=== PATIENT | female | born 1975 | race American Indian/Alaskan Native ===

== ENCOUNTER 2017-01-20 18:01 | Emergency (ER) | payer OTHER ==
[~2017-01-20] VITALS: Ht 162.6 cm; Wt 83.0 kg
[2017-01-20 19:56] LABS: PLATELET COUNT 362 K/uL (152-353)
[2017-01-20 20:06] LABS: POTASSIUM 3.9 mmol/L (3.6-5.2); SODIUM 142 mmol/L (136-145)
[2017-01-21 04:05] VITALS: BP 125/76; TEMP 98.2
== END 2017-01-21 04:25 | disposition short-term general hospital (02) ==
LOC: ED 18:01
PROVIDERS: Emergency Medicine
DX: J90 Pleural effusion, not elsewhere classified (principal); R18.8 Other ascites; N39.0 Urinary tract infection, site not specified; R11.2 Nausea with vomiting, unspecified
CPT/HCPCS: 36415; 80053; 81000; 81025; 83690; 83880; 85027; 87088; 93005; 96361; 96365; 96375; 99285; J0696; J2270; J2405; Q9963

== ENCOUNTER 2017-01-21 04:04 | Outpatient (CLI) | payer OTHER | END 2017-01-21 05:19 | disposition short-term general hospital (02) | LOC: AMB 04:04 | DX: J90 Pleural effusion, not elsewhere classified (principal); R18.8 Other ascites; N39.0 Urinary tract infection, site not specified; R11.2 Nausea with vomiting, unspecified | CPT/HCPCS: A0425; A0429 ==

== ENCOUNTER 2017-03-31 23:19 | Outpatient (CLI) | payer OTHER | END 2017-03-31 23:46 | disposition short-term general hospital (02) | LOC: AMB 23:19 | DX: R06.09 Other forms of dyspnea (principal); M54.89 Other dorsalgia | CPT/HCPCS: A0425; A0427 ==

== ENCOUNTER 2017-06-02 20:55 | Emergency (ER) | payer OTHER ==
[~2017-06-02] VITALS: Ht 162.6 cm; Wt 71.2 kg
[2017-06-02 21:07] VITALS: BP 135/56; TEMP 98
== END 2017-06-02 21:28 | disposition home or self-care (01) ==
LOC: ED 20:55
DX: F41.0 Panic disorder [episodic paroxysmal anxiety] (principal); R06.4 Hyperventilation
CPT/HCPCS: 96372; 99282; J2060